=== PATIENT | male | born 1980 | race Hispanic/Latino ===

== ENCOUNTER 2019-03-29 12:02 | Emergency (ER) | payer BC, OTHER ==
[2019-03-29] MEDS ORDERED: IBUPROFEN 600 MG TABLET ONE (13:02)
[2019-03-29] MEDS ORDERED: ACETAMINOPHEN 325 MG TAB ONE (13:11)
== END 2019-03-29 13:46 | disposition home or self-care (01) ==
LOC: EDH 12:02
DX: S80.871A Other superficial bite, right lower leg, initial encounter (principal); W54.0XXA Bitten by dog, initial encounter; Y93.89 Activity, other specified; Y92.89 Other specified places as the place of occurrence of the external cause; Y99.8 Other external cause status
CPT/HCPCS: 73590

== ENCOUNTER 2021-09-09 12:00 | Inpatient (IN) | payer OTHER ==
[~2021-09-09] VITALS: Ht 167.6 cm; Wt 85.8 kg
[2021-09-09 11:18] LABS: BASOPHILS % (AUTO) 0.5 % (0.0-5.0); EOSINOPHILS % (AUTO) 1.7 % (0.0-8.0); HEMATOCRIT 46.2 % (42-54); LYMPHOCYTES % (AUTO) 29.9 % (21.0-51.0); MEAN CORPUSCULAR HEMOGLOBIN 30.1 pg (27.0-33.0); MEAN CORPUSCULAR VOLUME 88.5 fL (79-99); MONOCYTES % (AUTO) 6.1 % (3.0-13.0); NEUTROPHILS % (AUTO) 61.6 % (40.0-77.0); PLATELET COUNT (AUTO) 236 K/uL (130-400); RED BLOOD CELL COUNT(AUTO) 5.22 MIL/uL (4.50-6.20); WHITE BLOOD COUNT (AUTO) 5.9 K/uL (4.8-10.8)
[2021-09-09 11:19] LABS: APPEARANCE,URINE Clear (CLEAR); BILIRUBIN,URINE Negative (NEGATIVE); COLOR,URINE Yellow (YELLOW); GLUCOSE, URINE (UA) Negative (NEGATIVE); KETONES,URINE Negative (NEGATIVE); LEUKOCYTE ESTERASE ,URINE Negative (NEGATIVE); NITRATE,URINE Negative (NEGATIVE); OCCULT BLOOD,URINE Trace (NEGATIVE); PH,URINE 5.5 (5.0-8.0); PROTEIN,URINE Negative (NEGATIVE); UROBILINOGEN,URINE 0.2 mg/dL (0.2-1.0)
[2021-09-09 11:28] LABS: POTASSIUM 4.3 mmol/L (3.5-5.1)
[2021-09-09 11:35] LABS: BACTERIA,URINE Rare /HPF (None Seen); RBC,URINE 0-1 /HPF (0-1); SQUAMOUS EPITHELIAL CELL,UR Rare /HPF (0-2); WBC,URINE 0-1 /HPF (0-1)
[2021-09-09 11:44] LABS: INR 0.99 (0.85-1.15); PROTHROMBIN TIME 10.8 SEC (9.6-11.6)
[2021-09-10 10:49] VITALS: BP 132/86
[2021-09-10] MEDS ORDERED: VITAMIN D PO (11:06)
[2021-09-11] VITALS (24 sets, daily range): BP systolic 108–143; BP diastolic 56–78
[2021-09-11] MEDS ORDERED: LACTATED RINGERS 1000ML 1,000 ML IV ONE (09:10)
[2021-09-11] MEDS ORDERED: ACETAMINOPHEN 500 MG TABLET ONE (09:23)
[2021-09-11] MEDS ORDERED: CELECOXIB 200 MG CAP ONE (09:23)
[2021-09-11] MEDS: CEFAZOLIN SODIUM 1 GM VIAL IVP SCH ×3 (09:32→23:07)
[2021-09-11] MEDS ORDERED: LIDOCAINE PF 100MG/5ML (2%) SYRINGE 5ML ONE (14:49)
[2021-09-11] MEDS ORDERED: PROPOFOL 10 MG/ML 20ML VIAL IV ONE (14:50)
[2021-09-11] MEDS ORDERED: SUCCINYLCHOLINE CHLORIDE 20 MG/ML 10 ML VIAL ONE (14:50)
[2021-09-11] MEDS ORDERED: MIDAZOLAM HCL 1 MG/ML 2ML VIAL ONE (14:50)
[2021-09-11] MEDS ORDERED: FENTANYL CITRATE PF 50 MCG/1 ML 2ML VIAL ONE ×2 (14:51→16:24)
[2021-09-11] MEDS ORDERED: ROCURONIUM 10MG/1ML SYR 10 MG/ML ML ONE (14:51)
[2021-09-11] MEDS ORDERED: TRANEXAMIC ACID 1000MG/10ML ONE ×2 (14:53→19:10)
[2021-09-11] MEDS ORDERED: CEFAZOLIN SODIUM 1 GM VIAL ONE (14:53)
[2021-09-11] MEDS ORDERED: EPHEDRINE SULFATE 50 MG/ML AMPULE ONE (15:35)
[2021-09-11] MEDS ORDERED: CEFAZOLIN SODIUM 1 GM VIAL IRRIG ONE (16:09)
[2021-09-11] MEDS ORDERED: NEOSTIGMINE 5MG/5ML SYR IV ONE (18:40)
[2021-09-11] MEDS ORDERED: ONDANSETRON 4MG INJ ONE (18:40)
[2021-09-11] MEDS ORDERED: GLYCOPYRROLATE 1 MG/5 ML SYRINGE ONE (18:40)
[2021-09-11] MEDS ORDERED: KETOROLAC 15MG/ML VIAL (15MG/ML) IV PRN (19:00)
[2021-09-11] MEDS ORDERED: DiphenhydrAMINE HCL 50 MG/ML VIAL IVP PRN (19:00)
[2021-09-11] MEDS: ACETAMINOPHEN 500 MG TABLET PO SCH (19:00)
[2021-09-11] MEDS ORDERED: KCL 20 MEQ ERTAB PO PRN (19:00)
[2021-09-11] MEDS ORDERED: TRAMADOL HCL 50 MG TABLET PO PRN (19:00)
[2021-09-11] MEDS ORDERED: POTASSIUM CHLORIDE 20MEQ/100ML 100 ML IV PRN (19:00)
[2021-09-11] MEDS ORDERED: POTASSIUM CHLORIDE 10% ELIXIR 20 MEQ/15 ML UDCUP PO PRN (19:00)
[2021-09-11] MEDS ORDERED: FERROUS FUMARATE 324 MG TABLET PO PRN (19:00)
[2021-09-11] MEDS ORDERED: ONDANSETRON 4MG INJ IVP PRN (19:00)
[2021-09-11] MEDS ORDERED: LIDOCAINE HCL-MPF 1% 2ML VIAL IV PRN (19:00)
[2021-09-11] MEDS ORDERED: MEPERIDINE-PF 25 MG/ML SYG ONE (19:28)
[2021-09-11] MEDS: 0.9%NACL 1000ML 1,000 ML IV SCH (21:05)
[2021-09-11] MEDS: ASPIRIN 81 MG EC TAB PO SCH (23:07)
[2021-09-11] MEDS: CELECOXIB 200 MG CAP PO SCH (23:07)
[2021-09-11] MEDS: FAMOTIDINE 20MG TAB PO SCH (23:07)
[2021-09-11] MEDS: PREGABALIN 25 MG CAP PO SCH (23:07)
[2021-09-12] MEDS: 0.9%NACL 1000ML 1,000 ML IV SCH ×2 (03:15→15:00)
[2021-09-12 03:16] VITALS: BP 108/63
[2021-09-12] MEDS: ACETAMINOPHEN 500 MG TABLET PO SCH ×3 (03:17→20:24)
[2021-09-12 04:11] LABS: HEMATOCRIT 35.8 % (42-54); MEAN CORPUSCULAR HGB CONC 34.1 g/dL (32.0-36.0); RED BLOOD CELL COUNT(AUTO) 4.07 MIL/uL (4.50-6.20); RED CELL DISTRIBUTION WIDTH 12.7 % (11.0-15.5); WHITE BLOOD COUNT (AUTO) 6.8 K/uL (4.8-10.8)
[2021-09-12 04:22] LABS: CREATININE 0.9 mg/dL (0.5-1.5)
[2021-09-12] MEDS: OXYCODONE HCL 5 MG TAB PO PRN ×3 (06:14→20:23)
[2021-09-12] MEDS: CEFAZOLIN SODIUM 1 GM VIAL IVP SCH (07:58)
[2021-09-12 08:00] VITALS: BP 109/68
[2021-09-12] MEDS: PREGABALIN 25 MG CAP PO SCH ×2 (10:11→20:24)
[2021-09-12] MEDS: CELECOXIB 200 MG CAP PO SCH ×2 (10:11→20:23)
[2021-09-12] MEDS: FAMOTIDINE 20MG TAB PO SCH ×2 (10:11→20:24)
[2021-09-12] MEDS: ASPIRIN 81 MG EC TAB PO SCH ×2 (10:11→20:24)
[2021-09-12] MEDS: TAMSULOSIN HCL 0.4 MG CAP.ER.24H PO SCH (10:12)
[2021-09-12] MEDS: POLYETHYLENE GLYCOL 3350 17 GM POWD.PACK PO SCH (10:12)
[2021-09-12 11:00] VITALS: BP 111/61
[2021-09-12] MEDS ORDERED: KETOROLAC 30MG VIAL (30MG/ML) ONE (15:10)
[2021-09-12] MEDS: CALCIUM CARB 500MG PO PRN (15:43)
[2021-09-12 16:00] VITALS: BP 113/69
[2021-09-12 20:00] VITALS: BP 116/70
[2021-09-13] VITALS (7 sets, daily range): BP systolic 95–115; BP diastolic 51–72
[2021-09-13] MEDS: ACETAMINOPHEN 500 MG TABLET PO SCH ×3 (03:27→18:34)
[2021-09-13] MEDS: OXYCODONE HCL 5 MG TAB PO PRN ×3 (03:27→18:39)
[2021-09-13] MEDS: FAMOTIDINE 20MG TAB PO SCH ×2 (08:09→19:36)
[2021-09-13] MEDS: ASPIRIN 81 MG EC TAB PO SCH ×2 (08:09→19:36)
[2021-09-13] MEDS: CELECOXIB 200 MG CAP PO SCH ×2 (08:09→19:36)
[2021-09-13] MEDS: PREGABALIN 25 MG CAP PO SCH ×2 (08:10→19:36)
[2021-09-13] MEDS: POLYETHYLENE GLYCOL 3350 17 GM POWD.PACK PO SCH (08:11)
[2021-09-13] MEDS: TAMSULOSIN HCL 0.4 MG CAP.ER.24H PO SCH (08:11)
[2021-09-13] MEDS: CALCIUM CARB 500MG PO PRN (15:43)
[2021-09-14] MEDS: ACETAMINOPHEN 500 MG TABLET PO SCH (02:49)
[2021-09-14 03:57] VITALS: BP 102/64
[2021-09-14 08:00] VITALS: BP 117/80
[2021-09-14] MEDS: CELECOXIB 200 MG CAP PO SCH (09:48)
[2021-09-14] MEDS: PREGABALIN 25 MG CAP PO SCH (09:48)
[2021-09-14] MEDS: POLYETHYLENE GLYCOL 3350 17 GM POWD.PACK PO SCH (09:48)
[2021-09-14] MEDS: ASPIRIN 81 MG EC TAB PO SCH (09:48)
[2021-09-14] MEDS: TAMSULOSIN HCL 0.4 MG CAP.ER.24H PO SCH (09:48)
[2021-09-14] MEDS: FAMOTIDINE 20MG TAB PO SCH (09:49)
[2021-09-14] MEDS: OXYCODONE HCL 5 MG TAB PO PRN (09:51)
[2021-09-14] MEDS ORDERED: HYDR-4060 PO (10:55)
[2021-09-14] MEDS ORDERED: AEC81 PO (10:55)
[2021-09-14] MEDS ORDERED: CELE200 PO (10:55)
[2021-09-14 12:00] VITALS: BP 111/66
[2021-09-14] MEDS ORDERED: BISACODYL 10 MG SUPP.RECT RC PRN (19:00)
== END 2021-09-14 13:15 | disposition home health service (06) | DRG 470 ==
LOC: OBSVTOIN 09-11 08:06 → DAHIP 09-11 08:06 → INTOOBSV 09-11 08:06 → 4BH 09-11 19:39
PROVIDERS: ADMIT Orthopaedic Surgery; ATTEND Orthopaedic Surgery
PROC: 0SRB0JZ Replacement of Left Hip Joint with Synthetic Substitute, Open Approach (ICD-10-PCS; principal; 2021-09-11 15:03)
DX: M16.12 Unilateral primary osteoarthritis, left hip (principal); D64.9 Anemia, unspecified; Z20.822 Contact with and (suspected) exposure to COVID-19; Z82.49 Family history of ischemic heart disease and other diseases of the circulatory system
CPT/HCPCS: 36415; 73503; 80048; 81001; 85025; 85027; 85610; 85730; 87088; 87635; 87641; 97039; C1776; G0378; J0330; J0690; J1885; J2001; J2175; J2250; J2405; J2704; J2710; J3010; J3490; J7120